=== PATIENT | female | born 1985 | race Caucasian/White ===

== ENCOUNTER 2017-01-16 03:55 | Inpatient (IN) | payer MEDICAID ==
--- NOTE | 2017-01-16 04:10 | EDM.PDOC ---
<Sulma Mack - Last Filed: 01/16/17 06:45> ED HPI GENERAL MEDICAL PROBLEM - General Chief Complaint: Abdominal Pain Stated Complaint: Fever, Abdominal pain for 2 days Time Seen by Provider: 01/16/17 04:00 Source of Information: Reports: Patient History Limitations: Reports: No Limitations - History of Present Illness INITIAL COMMENTS - FREE TEXT/NARRATIVE: Patient has had fever and crampy abdominal pain for two days. She went to clinic yesterday and was told had "lots of bacteria in urine" and started on bactrim and zofram. Denies any current or previous frequency, urgency, dysuria or flank pain or hematuria. Later in the day pain migrated to RLQ area. Also has diarrhea that started last night. Onset: Gradual Onset Date: 01/13/17 Onset Time: 13:00 Duration: Day(s):, Getting Worse Location: Reports: Abdomen Quality: Reports: Ache, Throbbing Severity: Severe Improves with: Reports: None Worsens with: Reports: Movement Associated Symptoms: Reports: Fever/Chills, Loss of Appetite, Nausea/Vomiting. Denies: Confusion, Chest Pain, Cough, Diaphoresis, Shortness of Breath Low abdomen Pain Score (Numeric/FACES): 4 - Related Data Allergies Allergy/AdvReac Type Severity Reaction Status Date / Time erythromycin base Allergy Cannot Verified 01/16/17 05:02 Remember Home Meds: Home Meds Ondansetron [Zofran ODT] 4 mg PO Q6HR PRN 01/16/17 [History] Sulfamethoxazole/Trimethoprim [Bactrim Ds Tablet] 1 tab PO BID 01/16/17 [History ] ED ROS GENERAL - Review of Systems Review Of Systems: See Below Constitutional: Reports: Fever, Chills, Fatigue HEENT: Reports: No Symptoms Respiratory: Reports: No Symptoms. Denies: Shortness of Breath, Wheezing, Cough Cardiovascular: Reports: No Symptoms. Denies: Chest Pain, Lightheadedness, Palpitations Endocrine: Reports: No Symptoms GI/Abdominal: Reports: Abdominal Pain, Anorexia, Diarrhea, Decreased Appetite, Nausea, Other (diffuse abdominal pain primarily epigastric and right lower quadrant since last night). Denies: Black Stool, Bloody Stool, Distension, Flatus, Hematemesis, Stool Incontinence : Reports: No Symptoms, Other (LMP one week ago). Denies: Dysuria, Flank Pain , Frequency Musculoskeletal: Reports: No Symptoms Skin: Reports: No Symptoms Neurological: Reports: No Symptoms Psychiatric: Reports: No Symptoms Hematologic/Lymphatic: Reports: No Symptoms Immunologic: Reports: No Symptoms ED EXAM, GI/ABD - Physical Exam Exam: See Below Exam Limited By: No Limitations General Appearance: Alert, WD/WN, No Apparent Distress Eyes: Bilateral: Normal Appearance, EOMI Ears: Normal External Exam, Normal Canal, Hearing Grossly Normal, Normal TMs Nose: Normal Inspection Throat/Mouth: Normal Inspection, Normal Oropharynx, Other (dry oral mucous membranes) Head: Atraumatic, Normocephalic Neck: Normal Inspection, Supple, Non-Tender, Full Range of Motion Respiratory/Chest: No Respiratory Distress, Lungs Clear, Normal Breath Sounds, No Accessory Muscle Use, Chest Non-Tender. No: Crackles, Rales, Rhonchi, Wheezing Cardiovascular: Normal Peripheral Pulses, Regular Rate, Rhythm, No Edema. No: No JVD, No Murmur, No Rub GI/Abdominal: Normal Bowel Sounds, Soft, No Organomegaly, No Distention, Tenderness, Guarding. No: Distention, Rebound, Hepatomegaly, Splenomegaly, Psoas Sign, Obturator Sign (abdomen soft and mildly tender generally with more specific tenderness right lower quadrant and epigastric area) Rectal (Female) Exam: Deferred Back Exam: Normal Inspection, Full Range of Motion. No: CVA Tenderness (L), CVA Tenderness (R) Extremities: Normal Inspection, Normal Range of Motion, Non-Tender, No Pedal Edema, Normal Capillary Refill Neurological: Alert, Oriented, CN II-XII Intact, Normal Cognition, Normal Gait, Normal Reflexes Psychiatric: Normal Affect, Normal Mood Skin Exam: Warm, Dry, Intact, Normal Color Lymphatic: No Adenopathy Course - Vital Signs Text/Narrative:: Patient seen and evaluated in ER. Labs and diagnostics done. IV started and Normal saline fluid bolus given over one hour. Normal WBC with with 57% bands noted. CRP 22.5. Potassium low at 3.1. Patient initially given zofran 4 mg and toradol 15 but still having discomfort epigastric and RLQ when re-evaluated after CT abdomen done. Will be given dilaudid 1 mg and another Saline bolus started with 40 meQ of KCL added to run at [address] results pending at this time. (0645 am) amylase and lipase added to labwork. Last Recorded V/S: Last Vital Signs Temp 38.8 C H 01/16/17 06:45 Pulse 108 H 01/16/17 04:00 Resp 16 01/16/17 04:00 BP 151/79 H 01/16/17 04:00 Pulse Ox 99 01/16/17 04:00 - Orders/Labs/Meds Orders: Active Orders 24 hr Category Date Time Status Admission Status [Patient Status] [ADT] Routine ADT 01/16/17 07:16 Ordered Abdomen Pelvis w Cont [CT] Stat Exams 01/16/17 04:15 Taken Sodium Chloride 0.9% [Saline Flush] Med 01/16/17 04:11 Active 10 ml FLUSH ASDIRECTED PRN Sodium Chloride 0.9% with KCl [Normal Saline with 40 Med 01/16/17 06:45 Active mEq KCl] 1,000 ml IV ASDIRECTED Saline Lock Insert [OM.PC] Routine Oth 01/16/17 04:11 Ordered Medication Orders Potassium Chloride/Sodium Chloride (Normal Saline With 40 Meq Kcl) 1,000 mls @ 200 mls/hr IV ASDIRECTED OJ Last Admin: 01/16/17 07:05 Dose: 200 mls/hr Sodium Chloride (Saline Flush) 10 ml FLUSH ASDIRECTED PRN PRN Reason: Keep Vein Open Labs: Laboratory Tests 01/16/17 01/16/17 01/16/17 Range/Units 04:15 04:15 05:11 WBC 8.6 (4.0-10.0) x10^3/uL RBC 3.65 L (4.00-5.50) x10^6/uL Hgb 11.2 L (12.0-16.0) g/dL Hct 33.4 (33.0-47.0) % MCV 91.5 (78.0-93.0) fL MCH 30.7 (26.0-32.0) pg MCHC 33.5 (32.0-36.0) g/dL RDW Coeff of Dionisio 12.8 (10.0-15.0) % Plt Count 241 (130-400) x10^3/uL Add Manual Diff Yes Neutrophils % (Manual) 28 L (50-80) % Band Neutrophils % 57 H (0-6) % Lymphocytes % (Manual) 6 L (25-50) % Monocytes % (Manual) 8 (2-11) % Metamyelocytes % 1 H (0) % Platelet Estimate Adequate Hypochromasia 1+ slight H Sodium (136-145) mmol/L Potassium (3.5-5.1) mmol/L Chloride (98-107) mmol/L Carbon Dioxide (21-32) mmol/L BUN (7-18) mg/dL Creatinine (0.55-1.02) mg/dL Est Cr Clr Drug Dosing mL/min Estimated GFR (MDRD) Glucose (74-106) mg/dL Calcium (8.5-10.1) mg/dL Corrected Calcium (8.5-10.1) mg/dL Total Bilirubin (0.2-1.0) mg/dL AST (15-37) U/L ALT (14-59) U/L Alkaline Phosphatase (46-116) U/L C-Reactive Protein (<=0.9) mg/dL Total Protein (6.4-8.2) g/dL Albumin (3.4-5.0) g/dL Globulin Albumin/Globulin Ratio Amylase (25-115) U/L Lipase (73-393) U/L Urine Color Yellow (YELLOW) Urine Appearance Slightly cloudy H (CLEAR) Urine pH 6.0 (5.0-8.0) Ur Specific [place] 1.010 Urine Protein 30 H (NEGATIVE) mg/dL Urine Glucose (UA) Negative (NEGATIVE) mg/dL Urine Ketones Negative (NEGATIVE) mg/dL Urine Occult Blood Trace-intact H (NEGATIVE) Urine Nitrite Negative (NEGATIVE) Urine Bilirubin Negative (NEGATIVE) Urine Urobilinogen 0.2 (0.2) EU/dL Ur Leukocyte Esterase Negative (NEGATIVE) Urine RBC 0-5 (NOT SEEN) /HPF Urine WBC 0-5 (NOT SEEN) /HPF Ur Squamous Epith Cells Many H (NEGATIVE) /HPF Amorphous Sediment Few Urine Bacteria Rare (NEGATIVE) /HPF Urine Mucus Rare H (NEGATIVE) /LPF Urine HCG, Qual Negative (NEGATIVE) 01/16/17 01/16/17 Range/Units 05:11 05:11 WBC (4.0-10.0) x10^3/uL RBC (4.00-5.50) x10^6/uL Hgb (12.0-16.0) g/dL Hct (33.0-47.0) % MCV (78.0-93.0) fL MCH (26.0-32.0) pg MCHC (32.0-36.0) g/dL RDW Coeff of Dionisio (10.0-15.0) % Plt Count (130-400) x10^3/uL Add Manual Diff Neutrophils % (Manual) (50-80) % Band Neutrophils % (0-6) % Lymphocytes % (Manual) (25-50) % Monocytes % (Manual) (2-11) % Metamyelocytes % (0) % Platelet Estimate Hypochromasia Sodium 138 (136-145) mmol/L Potassium 3.1 L (3.5-5.1) mmol/L Chloride 104 (98-107) mmol/L Carbon Dioxide 22 (21-32) mmol/L BUN 6 L (7-18) mg/dL Creatinine 1.1 H (0.55-1.02) mg/dL Est Cr Clr Drug Dosing 61.86 mL/min Estimated GFR (MDRD) 58 Glucose 108 H (74-106) mg/dL Calcium 7.9 L (8.5-10.1) mg/dL Corrected Calcium 8.78 (8.5-10.1) mg/dL Total Bilirubin 0.3 (0.2-1.0) mg/dL AST 18 (15-37) U/L ALT 25 (14-59) U/L Alkaline Phosphatase 72 (46-116) U/L C-Reactive Protein 22.5 H (<=0.9) mg/dL Total Protein 6.8 (6.4-8.2) g/dL Albumin 2.9 L (3.4-5.0) g/dL Globulin 3.9 Albumin/Globulin Ratio 0.74 Amylase 20 L (25-115) U/L Lipase 58 L (73-393) U/L Urine Color (YELLOW) Urine Appearance (CLEAR) Urine pH (5.0-8.0) Ur Specific [place] Urine Protein (NEGATIVE) mg/dL Urine Glucose (UA) (NEGATIVE) mg/dL Urine Ketones (NEGATIVE) mg/dL Urine Occult Blood (NEGATIVE) Urine Nitrite (NEGATIVE) Urine Bilirubin (NEGATIVE) Urine Urobilinogen (0.2) EU/dL Ur Leukocyte Esterase (NEGATIVE) Urine RBC (NOT SEEN) /HPF Urine WBC (NOT SEEN) /HPF Ur Squamous Epith Cells (NEGATIVE) /HPF Amorphous Sediment Urine Bacteria (NEGATIVE) /HPF Urine Mucus (NEGATIVE) /LPF Urine HCG, Qual (NEGATIVE) Meds: Medications Generic Name Dose Route Start Last Admin Trade Name Freq PRN Reason Stop Dose Admin Potassium Chloride/Sodium Chloride 1,000 mls @ 200 mls/hr 01/16/17 06:45 01/27 07:05 Normal Saline With 40 Meq Kcl IV 200 mls/hr ASDIRECTED OJ Administration Sodium Chloride 10 ml 01/16/17 04:11 Saline Flush FLUSH ASDIRECTED PRN Keep Vein Open Discontinued Medications Generic Name Dose Route Start Last Admin Trade Name Freq PRN Reason Stop Dose Admin Hydromorphone HCl 1 mg 01/16/17 06:34 01/16/17 06:45 Dilaudid IVPUSH 01/16/17 06:35 1 mg ONETIME ONE Administration Sodium Chloride 1,000 mls @ 999 mls/hr 01/16/17 04:15 01/16/17 04:30 Normal Saline IV 01/16/17 05:15 999 mls/hr ONETIME ONE Administration Ketorolac Tromethamine 30 mg 01/16/17 04:14 01/16/17 04:40 Toradol IVPUSH 01/16/17 04:15 30 mg ONETIME ONE Administration Ondansetron HCl 4 mg 01/16/17 04:13 01/16/17 04:35 Zofran IVPUSH 01/16/17 04:14 4 mg ONETIME ONE Administration Departure - Departure Time of Disposition: 07:10 Disposition: Refer to Observation Condition: fair Clinical Impression: Hypokalemia Abdominal pain Qualifiers: Abdominal location: right lower quadrant Qualified Code(s): R10.31 - Right lower quadrant pain Fever Qualifiers: Fever type: unspecified Qualified Code(s): R50.9 - Fever, unspecified - Discharge Information - Problem List Review Problem List Initiated/Reviewed/Updated: Yes - My Orders Last 24 Hours: My Active Orders 01/16/17 07:16 Admission Status [Patient Status] [ADT] Routine - Assessment/Plan Last 24 Hours: My Active Orders 01/16/17 07:16 Admission Status [Patient Status] [ADT] Routine <Anjel Stephens - Last Filed: 01/16/17 07:19> ED HPI GENERAL MEDICAL PROBLEM - General Source of Information: Reports: Patient, Family, RN, RN Notes Reviewed History Limitations: Reports: No Limitations MLP Sign Off - Signature Requirements :: Patient signed out to Ruby Stephens NP on 01/16/2017 06:58
[2017-01-16] MEDS ORDERED: Sodium Chloride 0.9% 10 ML Syringe FLUSH PRN (04:11)
[2017-01-16] MEDS ORDERED: Ondansetron 4 MG/2 ML SDV IVPUSH ONE (04:13)
[2017-01-16] MEDS ORDERED: Ketorolac 30 MG/ML SDV IVPUSH ONE (04:14)
[2017-01-16] MEDS ORDERED: Sodium Chloride 0.9% 500 ML IV ONE (04:14)
[2017-01-16] MEDS ORDERED: Sodium Chloride 0.9% 1,000 ML IV ONE (04:15)
[2017-01-16] MEDS ORDERED: HYDROmorphone 1 MG/ML Syringe IVPUSH ONE (06:34)
[2017-01-16] MEDS: Sodium Chloride 0.9% with KCl 1,000 ML IV SCH ×2 (07:05→21:33)
[2017-01-16] MEDS ORDERED: Ondansetron 4 MG/2 ML SDV IVPUSH PRN (07:34)
[2017-01-16] MEDS ORDERED: Calcium Gluconate 10% 1 GM/10 ML SDV IVPUSH ONE (07:37)
[2017-01-16] MEDS: Pantoprazole 40 MG Vial IV SCH (09:21)
[2017-01-16] MEDS: methylPREDNISolone Sodium Succinate 125 MG/2 ML SDV IVPUSH SCH ×2 (09:26→20:16)
[2017-01-16] MEDS: Acetaminophen 325 MG Tab PO PRN (09:29)
[2017-01-16] MEDS: metroNIDAZOLE/Normal Saline 500 MG in Premix Bag 1 BAG IV SCH ×3 (09:31→23:08)
[2017-01-16] MEDS ORDERED: Magnesium Sulfate/Water 2 GM in Premix Bag 1 BAG IV ONE (10:20)
[2017-01-16] MEDS: HYDROmorphone 1 MG/ML Syringe IVPUSH PRN ×2 (10:27→18:22)
[2017-01-16] MEDS: Ciprofloxacin in D5W 400 MG in Premix Bag 1 BAG IV SCH ×4 (11:18→20:11)
[2017-01-16] MEDS: Ferrous Sulfate 325 MG Tab PO SCH (20:15)
[2017-01-17 07:22] LABS: CHLORIDE,CL 110 mmol/L (98-107); SODIUM,NA 142 mmol/L (136-145)
[2017-01-17] MEDS: Ciprofloxacin in D5W 400 MG in Premix Bag 1 BAG IV SCH ×2 (07:37)
[2017-01-17] MEDS: methylPREDNISolone Sodium Succinate 125 MG/2 ML SDV IVPUSH SCH (07:52)
[2017-01-17] MEDS: Ferrous Sulfate 325 MG Tab PO SCH ×2 (07:52→18:06)
[2017-01-17] MEDS: Pantoprazole 40 MG Vial IV SCH (07:52)
[2017-01-17] MEDS: metroNIDAZOLE/Normal Saline 500 MG in Premix Bag 1 BAG IV SCH ×3 (09:07→23:37)
[2017-01-17] MEDS: Acetaminophen 325 MG Tab PO PRN (09:11)
[2017-01-17] MEDS: Sodium Chloride 0.9% with KCl 1,000 ML IV SCH ×2 (11:37→22:51)
[2017-01-17] MEDS ORDERED: Vancomycin 125 MG/2.5 ML Oral Solution 2.5 ML UD Cup PO SCH (12:00)
--- NOTE | 2017-01-17 17:33 | PN ---
Progress Note for MALINDA RODAS Date:01/17/2017 Room #: VM.204 SUBJECTIVE: Malinda was admitted on 01/16/2017 with abdominal pain, fever, and chills. She was found to have evidence of colitis on her CT scan, appearance was consistent possibly with that of Crohn disease. She was started on IV Cipro and Flagyl and kept n.p.o. She states that overall her discomfort is improved as her nausea and diarrhea. She has been hemodynamically stable since admission. She does however have an elevated white count of 14.2, up from 8.6 on the morning of 01/16/2017. She also has a 57% bandemia and her ESR has increased from 39 to 50. Her chemistry has remained stable however. OBJECTIVE: General: This is a 31-year-old female patient, who is in no acute distress. Vital Signs: Blood pressure is 107/59, heart rate is 78, temperature is 38.9, respiratory rate 16, and O2 saturation is 98%. Skin: Warm, pink, and dry. HEENT: Head is normocephalic, atraumatic. Mouth, oral mucosa is moist. Lungs: Clear to auscultation. Heart: Regular rate and rhythm. Abdomen: Soft and nontender. There is no hepatosplenomegaly or masses noted. Extremities: Without edema. Neurologic: She is alert and oriented and answers all questions appropriately. LABORATORY DATA: The stool was positive for C. diff. HOSPITAL COURSE: The patient is receiving normal saline with KCl at 125 an hour. Her pain has been under good control. She was continuing to receive Cipro 400 mg b.i.d. and Flagyl 500 mg every 8 hours. She also was getting Solu- Medrol 125 mg q.12 hours. ASSESSMENT: Clostridium difficile colitis. PLAN: We will keep the patient n.p.o. The patient will be meeting her max time for observation admission time at 4 o'clock in the morning. Subsequently, we will make the patient acute this evening. The patient will be followed by Dr. Crawford. I did discuss the patient with her. Given the severity of the patient's symptoms, I am going to keep her on Flagyl 500 mg q.8 hours and will also be starting oral vancomycin 125 mg 4 times daily. Given this diagnosis, I see no point in continuing her IV Cipro. We will continue her IV fluids and we will stop her steroids given this new diagnosis. All questions were answered. MWK: 01/17/2017 15:14:41 MODL: 01/17/2017 17:12:06 /[id number]
--- NOTE | 2017-01-17 17:33 | PN ---
Progress Note for MALINDA RODAS Date: 01/17/2017 Room #: VM.204 SUBJECTIVE: The patient had been admitted to observation yesterday because of problems with left lower quadrant pain and discomfort. She was given IV hydration. Today, her culture came back positive for C. diff. Since she was still requiring IV fluids. She was felt need to be on acute care. So Omar Stover did switch her to acute care status. The patient is actually having a little bit more of an appetite. The patient had received two doses of Bactrim for UTI on 01/15/2017. However, had admitted to taking some old left over amoxicillin at home a few days prior for sore throat. So that most likely that was the inciting antibiotic that set up C. diff. She has never had C. diff before. She is starting to have more of an appetite now. OBJECTIVE: Vital Signs: Her temperature is 35.9, blood pressure is 107/59, pulse is 16, and sats 98%. Skin: [place], warm, and dry. Heart: Regular rate and rhythm. Lungs: Clear. Abdomen: Bowel sounds present, soft. IMPRESSION: 1. C. difficile colitis. 2. Abdominal pain, improving. 3. Dehydration improving. PLAN: I would consider her amount of C. difficile to be moderate and not severe. So therefore I feel she only needs to be on IV Flagyl right now for this and not on vancomycin. We will switch her Protonix to oral instead of IV. Her IV fluids right now are running at a rate of 100 mL per hour and will continue that at the current rate, and hopefully anticipate discharge within the next day or two, once she is able to tolerate oral medications. GM01/17/2017 15:27:32 MODL: 01/17/2017 17:13:19 /[id number]
[2017-01-17] MEDS ORDERED: Morphine 4 MG/ML Syringe IVPUSH ONE (19:20)
[2017-01-18] MEDS: Acetaminophen 325 MG Tab PO PRN (06:21)
[2017-01-18 06:46] LABS: CHLORIDE,CL 112 mmol/L (98-107); SODIUM,NA 144 mmol/L (136-145)
[2017-01-18] MEDS ORDERED: Pantoprazole 40 MG Tab.CR PO SCH (07:00)
[2017-01-18] MEDS: Ferrous Sulfate 325 MG Tab PO SCH ×2 (08:05→18:19)
[2017-01-18] MEDS: metroNIDAZOLE/Normal Saline 500 MG in Premix Bag 1 BAG IV SCH ×2 (08:06→15:52)
[2017-01-18] MEDS ORDERED: Lactobacillus Rhamnosus GG (Probiotic) Cap PO SCH (08:30)
[2017-01-18] MEDS ORDERED: Iron Polysaccharides Complex 150 MG Cap PO SCH (08:30)
--- NOTE | 2017-01-18 09:18 | PN ---
Progress Note for MALINDA RODAS Date: 01/18/2017 Room #: VM.204 SUBJECTIVE: The patient is a 31-year-old female, who is admitted with abdominal pain, discomfort, and diarrhea on 01/16/2017. Her stool culture did come back positive for C. difficile. She was started on metronidazole and vancomycin. Yesterday, the vancomycin was stopped and was felt her infection was mild. However, since the vanco was stopped, she has had about 6 loose stools. Does not feel very well. Her diet was advanced yesterday a little bit. She has not thrown up. She does still have some left lower quadrant discomfort. The patient was noted to be slightly anemic on admission and with hydration, so her stored iron levels did come back with her iron low, TIBC was low, percent saturation was low and percent ferritin was just slightly high which can also be an acute phase reactant. OBJECTIVE: VITAL SIGNS: Today, her temperature is 35.9, pulse 66, blood pressure is 137/90, sats are 98%, respiratory rate is 20. GENERAL: She appears slightly flushed. SKIN: Dry. HEART: Regular rate and rhythm. LUNGS: Clear. ABDOMEN: Bowel sounds are present. Her abdomen is soft. She does have some tenderness in the left lower quadrant. LABORATORY DATA: Her lab today showed her white blood cell count has gone up to 16.7 from 8.6, hemoglobin has dropped to 9.9, platelets are 308, 72 segs, 6 bands, 10 lymps, 12 monos. Her sodium is 144, potassium 4.2, chloride is 112, creatinine 0.8. GFR greater than 60. Blood sugar is 120. Her LFTs are normal today. Albumin is slightly low at 2.7. IMPRESSION: 1. Clostridium difficile colitis. 2. Anemia. 3. Abdominal pain. 4. Dehydration, improving. PLAN: We will resume her oral vancomycin as well. She is already on probiotics as well as oral iron supplementation. Continue IV fluids. Her diet had been advanced yesterday. The patient is up ambulating rounds, so do not feel that she needs DVT prophylaxis. I am going to put some support stockings on and will repeat blood work tomorrow. The patient has had SCDs on and to note patient's intake was fairly good yesterday 2700 with output 3600, slight deficit noted. GM01/18/2017 08:26:30 MODL: 01/18/2017 08:54:13 /[id number]
[2017-01-18] MEDS: Vancomycin 125 MG/2.5 ML Oral Solution 2.5 ML UD Cup PO SCH ×3 (09:19→15:52)
[2017-01-18] MEDS: Sodium Chloride 0.9% with KCl 1,000 ML IV SCH (10:53)
[2017-01-18] MEDS: HYDROmorphone 1 MG/ML Syringe IVPUSH PRN (13:51)
[2017-01-18 16:58] VITALS: BP 144/95
--- NOTE | 2017-01-19 10:18 | PN ---
Progress Note for MALINDA RODAS Date: 01/18/2017 Room #: VM.204 SUBJECTIVE: The patient had let the nurse know and her that they requested her transfer to [facility] in [place] as they were concerned about her medical condition. They were concerned that her white blood cell count was going higher, that her CT scan was abnormal and showed thickening of her colon and that she might need to be seen by an Infectious Disease specialist as well as a grain combine driver. The patient to note had been admitted on 01/16/2017 with left lower abdominal pain with diarrhea which had abnormal findings of thickening of her colon on CT. Her stool culture came back positive for C. difficile. The patient has not had a great oral intake. She has been receiving IV fluids. Her fever before admission had been up to 103, now it has been down to 98. It was noted her white blood cell count did go from 8.6 on admission up to 16.7, hemoglobin has dropped which was felt to be delusional from 11.2, down to 9.9. CRP has gone from 22.5 to 25.3. I did come up to visit with patient with the presence of Theresa Kline RN in the room and did explain that she is on standard of care treatment. Her vital signs are stable. Her blood work for the most part is improving, is not critically abnormal. Her lactic acid had been normal on admission. Her CT scan, did not know the results of the stool culture and so would not be able to say the cause of her problem and that since she is getting better, most likely she would continue the same IV therapy and IV fluids, and that it does take a few days to improve. The patient has been still requested to be sent to [place]. I then did contact to [facility] at 5:00 p.m. and did talk with Dr. Arceo, on-call physician and at first she was concerned that there would not be much new treatment given the patient that how much she is currently on and was somewhat hesitant about accepting patient, however, I stated that it was the patient's request for transfer and that they were no longer happy here with their care and availability in case she would worsen and so if they would not accept her at [facility], I would need to look for another hospital to accept the patient's care. She then did accept the patient in transfer. I also did explain that the patient's radiology reports are not available on right away and that there in [place], [place]. So the patient will need to go by ambulance, as she is on IV Flagyl and IV fluids. She is code level 1 status. GM01/18/2017 17:24:16 MODL: 01/18/2017 18:08:15 /[id number]
--- NOTE | 2017-01-19 10:18 | DISCH ---
PRIMARY DIAGNOSES: 1. Clostridium difficile colitis. 2. Anemia, multifactorial. 3. Leukocytosis. 4. Left lower quadrant abdominal pain. 5. Malnutrition. 6. Obesity. SUMMARY OF ADMIT: The patient is a 31-year-old female, who had been seen in the clinic on 01/15/2017 with complaints of abdominal pain and cramping. Urinalysis had shown some blood on it, so it was felt that she possibly had UTI, she was started on Bactrim DS. She took 2 doses of it, then she presented to the emergency room of [facility] on 01/16/2017 at 4:00 a.m. with severe left lower quadrant abdominal pain. At that time, she had a white blood cell count of 8.6, hemoglobin 11.2, with manual differential showing 28 neutrophils, 57% bands, 6 lymphocytes, 8 monocytes, sodium was 138, potassium 3.1, creatinine 1.1, GFR 58, glucose 108, magnesium 1.6. LFTs normal. CRP elevated at 22.5, albumin 2.9, amylase low at 20, lipase low at 58. TSH 1.72. Urinalysis showed slightly cloudy urine, protein 30 g, microscopy showed 0-5 red blood cells, 0-5 white blood cells present, rare bacteria present. SUMMARY OF HOSPITAL COURSE: The patient was 1st placed on observation given IV hydration and placed on IV Cipro and IV Flagyl. A CT scan was done of her colon, which showed thickening of her lower colon so the possibility of inflammatory colitis versus infectious colitis. Stool cultures have been obtained later on 01/16/2017, her vitamin B12 level of 461. Iron level was low at 12. TIBC was low at 210, % saturation low at 5.7, ferritin high at 278, lactic acid was normal at 1.3, ESR was 39. By next morning, the patient had been having fevers of 103. Her temperatures did come down, but by 01/17/2017, her white blood cell count has gone up to 14.7, hemoglobin 10.3 with 88 segs, 6 lymphocytes. 0.1 basophils, ESR was 50, sodium 142, potassium 4.0, creatinine 0.6, improved. GFR greater than 60. Glucose 148, calcium 7.0, magnesium was up to 2.0, CRP had gone up to 25.3, her stool culture did come back positive for C. difficile toxin and stool culture for Shiga toxin came back negative. The patient was then felt to be in need of acute care, so she was placed on acute care on 01/17/2017, it was then discovered the patient had been on some amoxicillin at home that she had, that she had taken about a week ago for a cold that she had. By 01/18/2017, her diet had been advanced from clear liquids to a full diet, however, she was not very hungry, she was still having more than 6 stools a day, still having some left lower quadrant pain, her white blood cell count had gone up to 16.7, hemoglobin had dropped to 9.9 with 72 segs, 6 bands. Sodium 144, potassium 4.2, creatinine stable at 0.8, GFR greater than 60. Family then had reviewed her medical records and they had decided that they want to be seen by a higher level hospital in case she needed Infectious Disease specialist present or if she needs to have switch adjuster present. I did go in to visit with patient with Theresa Kline RN and spent 15 minutes talking with the patient about her current disorder, the abnormal lab findings and x-ray finding she had had and reason for treatment and when we involve specialist and because her blood pressure was normal and pulse was normal, and her lactic acid was normal, it was not felt that she was becoming more septic. I then did contact the [facility] [place] and talk with Dr. Arceo who did accept the patient somewhat reluctantly, as she felt that her current care was appropriate and that she had nothing further to add. To note, patient also was on probiotics as well as Protonix has been added as well. However, family still wanted to be transferred and so they did agree to accept the patient in transfer. MEDICATIONS AT THE TIME OF TRANSFER: Tylenol 650 q.4 hours p.r.n., ferrous sulfate 325 one pill twice a day, Dilaudid 1 mg IV push q.4 hours p.r.n., lactobacillus 1 capsule daily, ondansetron 4 mg IV q.6 hours p.r.n., pantoprazole 40 mg 1 pill daily oral, sodium chloride 100 mL an hour, vancomycin 125 mg p.o. q.i.d., metronidazole 500 mg q.8 hours. To note, the patient had been started on vancomycin and then had temporarily been stopped, as it was her 1st episode of C. difficile colitis, however, then her diarrhea seemed to be returning and with her white blood cell count going higher, the vancomycin was restarted within 24 hours. The patient had SCDs on for DVT prophylaxis, as it was not felt that she required Lovenox as well as she was becoming more anemic. The patient is code level 1 at the time of transfer. To note, she is allergic to erythromycin. The patient is normally cared by RATNA Morrissey. To note, more than 30 minutes time was spent arranging transfer for patient. GM01/18/2017 17:31:50 MODL: 01/19/2017 05:42:05 /[id number]
== END 2017-01-18 19:00 | disposition short-term general hospital (02) | DRG 372 ==
LOC: VM.ED 03:55 → VM.MS 07:16 → OBSVTOIN 01-17 17:19
PROVIDERS: ADMIT Family Medicine; ATTEND Family Medicine
DX: R10.31 Right lower quadrant pain (principal); R50.9 Fever, unspecified; A04.7 Enterocolitis due to Clostridium difficile; E46 Unspecified protein-calorie malnutrition; D64.9 Anemia, unspecified; E66.9 Obesity, unspecified; E87.6 Hypokalemia; E86.0 Dehydration
CPT/HCPCS: 36415 ×2; 74177; 80048; 80053; 81001; 81025; 82150; 82607; 82728; 83540; 83550; 83605; 83690; 83735 ×2; 84100; 84443; 85025 ×2; 85652 ×2; 86140 ×2; 87045; 87046 ×3; 87493; 87899 ×2; 96361; 96365; 96375; 99285; A9270 ×5; C9113 ×2; J0610; J0744 ×3; J1170 ×3; J1885; J2405; J2930 ×3; J3480 ×3; J7030; J7050; 96366; 96367; 96376; G0378; J2270; J3475

== ENCOUNTER 2023-03-04 12:37 | Emergency (ER) | payer BC ==
[2023-03-04] MEDS ORDERED: Sodium Chloride 0.9% 10 ML Syringe FLUSH PRN (12:46)
[2023-03-04] MEDS ORDERED: fentaNYL 50 MCG/ML SDV IVPUSH ONE ×2 (12:48→13:39)
[2023-03-04] MEDS ORDERED: Lactated Ringers 1,000 ML IV ONE ×2 (12:48→16:30)
[2023-03-04 13:10] LABS: BASOPHILS PERCENT AUTO 0.3 % (0.2-1.2); EOSINOPHILS ABSOLUTE AUTO 0.1 x10^3/uL (0.0-0.5); EOSINOPHILS PERCENT AUTO 0.8 % (0.0-4.0); HEMATOCRIT 37.5 % (33.0-47.0); HEMOGLOBIN 13.5 g/dL (12.0-16.0); IMMATURE GRAN ABSOLUTE AUTO 0.02 x10^3/uL (0.00-0.07); LYMPHOCYTES PERCENT AUTO 22.4 % (25.0-50.0); MEAN CORPUSCULAR HEMOGLOBIN 31.7 pg (26.0-32.0); MONOCYTES ABSOLUTE AUTO 0.9 x10^3/uL (0.0-0.8); MONOCYTES PERCENT AUTO 6.8 % (2.0-11.0); NEUTROPHILS ABSOLUTE AUTO 9.3 x10^3/uL (1.8-7.7); NEUTROPHILS PERCENT AUTO 69.5 % (50.0-80.0); PLATELET COUNT,PLT 328 x10^3/uL (130-400); RED BLOOD CELL COUNT 4.26 x10^6/uL (4.00-5.50); WHITE BLOOD CELL COUNT,WBC 13.3 x10^3/uL (4.0-10.0)
[2023-03-04 13:22] LABS: BILIRUBIN,URINE NEGATIVE (NEGATIVE); COLOR,URINE YELLOW (YELLOW); GLUCOSE,URINE NEGATIVE (NEGATIVE); KETONES,URINE NEGATIVE (NEGATIVE); LEUKOCYTE ESTERASE,URINE NEGATIVE (NEGATIVE); NITRITE,URINE NEGATIVE (NEGATIVE); OCCULT BLOOD,URINE TRACE-INTACT (NEGATIVE); PROTEIN,URINE 100 mg/dL (NEGATIVE); UROBILINOGEN,URINE 0.2 EU/dL (0.2)
[2023-03-04 13:25] LABS: AMPHETAMINES SCREEN, URINE POSITIVE (NEGATIVE); BARBITURATE SCREEN,URINE NEGATIVE (NEGATIVE)
[2023-03-04 13:25] LABS: INR 0.9 (2.0-3.5); PROTHROMBIN TIME 10.1 SEC (9.5-12.2); PTT,PARTIAL THROMBOPLSTIN TIME 24.4 SEC (23.6-33.6)
[2023-03-04 13:26] LABS: BENZODIAZEPINES SCREEN,URINE NEGATIVE (NEGATIVE); BUPRENORPHINE SCREEN,URINE NEGATIVE (NEGATIVE); COCAINE METABOLITES,URINE NEGATIVE (NEGATIVE); METHADONE SCREEN, URINE NEGATIVE (NEGATIVE); METHAMPHETAMINE SCREEN, URINE NEGATIVE (NEGATIVE); OXYCODONE SCREEN,URINE NEGATIVE (NEGATIVE); PCP SCREEN,URINE NEGATIVE (NEGATIVE); THC SCREEN,URINE 50 NG/ML NEGATIVE (NEGATIVE)
[2023-03-04 13:29] LABS: A/G RATIO 0.98; ALANINE AMINOTRANSFERASE,ALT 30 U/L (14-59); ALBUMIN 3.9 g/dL (3.4-5.0); ALKALINE PHOSPHATASE 86 U/L (46-116); ANION GAP 14.1 mmol/L (5-15); ASPARTATE AMNIOTRANSFERASE,AST 24 U/L (15-37); BILIRUBIN TOTAL 0.3 mg/dL (0.2-1.0); BLOOD UREA NITROGEN,BUN 16 mg/dL (7-18); C-REACTIVE PROTEIN 1.23 mg/dL (<=0.30); CALCIUM 9.3 mg/dL (8.5-10.1); CARBON DIOXIDE,CO2 28 mmol/L (21-32); CHLORIDE,CL 105 mmol/L (98-107); CREATININE 1.1 mg/dL (0.55-1.02); ESTIMATED GFR 67 mL/min (>=60); GLUCOSE RANDOM 128 mg/dL (70-99); MAGNESIUM 1.6 mg/dL (1.8-2.4); POTASSIUM,K 4.1 mmol/L (3.5-5.1); PROTEIN TOTAL,TP 7.9 g/dL (6.4-8.2); SODIUM,NA 143 mmol/L (136-145)
[2023-03-04 13:30] LABS: APPEARANCE,URINE SLIGHTLY CLOUDY (CLEAR)
[2023-03-04 13:31] LABS: BACTERIA,URINE RARE /HPF (NOT SEEN); MUCUS,URINE OCCASIONAL /LPF (NOT SEEN); SQUAMOUS EPITHELIAL CELLS,UR MODERATE /HPF (NOT SEEN); WBC,URINE 0-5 /HPF (NOT SEEN)
[2023-03-04] MEDS ORDERED: Iopamidol 612 MG/ML 100 ML Bottle IVPUSH ONE (13:51)
[2023-03-04] MEDS ORDERED: Ketorolac 15 MG/ML SDV IVPUSH ONE (15:44)
[2023-03-04] MEDS ORDERED: Tamsulosin 0.4 MG Cap.ER PO ONE (15:45)
[2023-03-04] MEDS ORDERED: Take Home: Acetaminophen/HYDROcodone 325-10 MG, 5 Tab Pack PO ONE (16:24)
[2023-03-04 18:47] VITALS: BP 162/78; PULSE 78
== END 2023-03-04 16:45 | disposition home or self-care (01) ==
LOC: VM.ED 12:37
DX: N13.2 Hydronephrosis with renal and ureteral calculous obstruction (principal); I10 Essential (primary) hypertension; Z88.1 Allergy status to other antibiotic agents; Z79.899 Other long term (current) drug therapy
CPT/HCPCS: 71260; 74177; 80053; 80305-QW; 81001; 81025; 83735; 84484; 85025; 85610; 85730; 86140; 93005; 93010; 96361; 96374; 96375; 96376; 99284; 99284-25; A9270-GY; J1885; J3010; J7120; Q9967